=== PATIENT | male | born 1995 | race African-American/Black ===

== ENCOUNTER 2025-01-05 11:56 | Emergency (ER) | payer MEDICAID ==
[~2025-01-05] VITALS: Ht 188 cm; Wt 82.0 kg
[2025-01-05 12:12] VITALS: BP 104/64; TEMP 36.9; O2SAT 99
[2025-01-05 12:13] VITALS: PULSE 83; RESP 20; O2SAT 99
== END 2025-01-05 15:52 | disposition home or self-care (01) ==
LOC: ER 11:56
DX: M25.572 Pain in left ankle and joints of left foot (principal); R20.2 Paresthesia of skin
CPT/HCPCS: 99282